=== PATIENT | female | born 1995 | race Caucasian/White ===

== ENCOUNTER 2019-08-07 09:43 | Emergency (ER) | payer OTHER ==
[2019-08-07 10:46] LABS: Basophils % 0.5 % (0-1.3); Hematocrit 40.1 % (36.0-45.0); Lymphocytes % 17.7 % (15.3-44.8); MPV 9.2 fL (7.6-11.3); RBC Red Blood Cell Count 4.88 M/uL (3.86-4.86)
[2019-08-07 10:48] LABS: Urine Blood 3+ (NEG); Urine Glucose NEGATIVE (NEG); Urine Protein TRACE (NEG); Urine Specific Gravity 1.015 (1.005-1.030); Urine pH 5.5 (5.0-7.0)
--- NOTE | 2019-08-07 12:01 | RAD REPORT ---
EXAM DESCRIPTION: US - Transvaginal Study Probe - 08/07/2019 11:27 am CLINICAL HISTORY: Vaginal bleeding Preliminary findings provided at the time of the study. COMPARISON: None. TECHNIQUE: Endovaginal sonography was performed. FINDINGS: Nabothian cysts are present in the cervix. Endometrium is 9 mm in thickness. A focal endom etrial mass or polyp is not identified; however, there is some heterogeneity of the endometrial tissu e. One small 5 mm cystic area is seen in the endometrial tissue. No myometrial mass identifiable. No blood or fluid in the cul de sac. Both ovaries are identifiable. Doppler evaluation shows normal ovarian blood flow. No dominant solid or cystic ovarian or adnexal finding. IMPRESSION: Endometrium is 9 mm in thickness. One small 5 mm cystic area is seen but no solid mass o r polyp seen. Repeat imaging after 2-3 menstrual cycles could be performed to re-evaluate endometrial tissue. No myometrial abnormality. No ovarian or adnexal abnormality.
--- NOTE | 2019-08-07 12:11 | ER ---
Nurse's Notes [facility] Name: Amita Noriega Age: 24 yrs Sex: Female : 1995 Arrival Date: 08/07/2019 Time: 09:48 Bed 20 Private MD: Diagnosis: Abnormal uterine and vaginal bleeding, unspecified Presentation: 08/07 09:57 Presenting complaint: Heavy menstrual bleeding with peanut to golf ball sized clots x 3 hb days. Transition of care: patient was not received from another setting of care. Onset of symptoms was August 05, 2019. Risk Assessment: Do you want to hurt yourself or someone else? Patient reports no desire to harm self or others. Initial Sepsis Screen: Does the patient meet any 2 criteria? No. Patient's initial sepsis screen is negative. Does the patient have a suspected source of infection? No. Patient's initial sepsis screen is negative. Care prior to arrival: None. 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 - Social history:: Smoking status: Patient/guardian denies using tobacco. - Ebola Screening: : No symptoms or risks identified at this time. Screenin:09 Abuse screen: Denies threats or abuse. Denies injuries from another. Nutritional ca1 screening: No deficits noted. Tuberculosis screening: No symptoms or risk factors identified. Fall Risk None identified. Assessment: 10:09 General: Appears in no apparent distress. comfortable, Behavior is calm, cooperative, ca1 appropriate for age. Pain: Denies pain. Neuro: Level of Consciousness is awake, alert, obeys commands, Oriented to person, place, time, situation, Appropriate for age. Cardiovascular: Heart tones S1 S2 present Capillary refill < 3 seconds Patient's skin is warm and dry. Respiratory: Airway is patent Respiratory effort is even, unlabored, Respiratory pattern is regular, symmetrical, Breath sounds are clear bilaterally. GI: Abdomen is round non-distended, Bowel sounds present X 4 quads. Abd is soft and non tender X 4 quads. : Reports vaginal bleeding that is bright red, with clots, heavy flow since Tuesday last week. EENT: No deficits noted. No signs and/or symptoms were reported regarding the EENT system. Derm: Skin is intact, is healthy with good turgor, Skin is pink, warm \T\ dry. Musculoskeletal: Circulation, motion, and sensation intact. Capillary refill < 3 seconds, Range of motion: intact in all extremities. 11:57 Reassessment: Patient appears in no apparent distress at this time. Patient and/or ca1 family updated on plan of care and expected duration. Pain level reassessed. Patient is alert, oriented x 3, equal unlabored respirations, skin warm/dry/pink. 12:49 Reassessment: Patient appears in no apparent distress at this time. Patient is alert, ca1 oriented x 3, equal unlabored respirations, skin warm/dry/pink. Vital Signs: 09:59 BP 147 / 88; Pulse 76; Resp 16; Temp 97.8; Pulse Ox 100% on R/A; Weight 104.33 kg; hb Height 5 ft. 4 in. (162.56 cm); Pain 0/10; 11:57 BP 100 / 52; Pulse 99; Resp 16 S; Pulse Ox 100% on R/A; ca1 12:49 BP 111 / 67; Pulse 79; Resp 16 S; Pulse Ox 100% on R/A; ca1 09:59 Body Mass Index 39.48 (104.33 kg, 162.56 cm) hb ED Course: 09:48 Patient arrived in ED. mr 09:48 Aimee Santiago FNP-C [facility]. kb 09:48 Lake Muñoz MD is Attending Physician. kb 09:59 Triage completed. hb 09:59 Arm band placed on. hb 10:07 Anette Wade, RICH is Primary Nurse. ca1 10:09 Patient has correct armband on for positive identification. Bed in low position. Call ca1 light in reach. Side rails up X 1. Pulse ox on. NIBP on. Warm blanket given. 10:31 Initial lab(s) drawn, by me, sent to lab. Inserted saline lock: 22 gauge in right ca1 antecubital area, using aseptic technique. Blood collected. 11:30 US Transvaginal Study (Probe) In Process Unspecified. EDMS 12:50 No provider procedures requiring assistance completed. IV discontinued, intact, ca1 bleeding controlled, No redness/swelling at site. Pressure dressing applied. Administered Medications: No medications were administered Outcome: 12:10 Discharge ordered by . paige 12:50 Discharged to home ambulatory. ca1 12:50 Condition: stable 12:50 Discharge instructions given to patient, Instructed on discharge instructions, follow up and referral plans. Demonstrated understanding of instructions, follow-up care. 12:50 Patient left the ED. ca1 Signatures: Dispatcher [employer] EDVT Aimee Santiago, ASSET ADMINISTRATOR-C ASSET ADMINISTRATOR-Isamar Villarrela mr Luiza Johnson, RN RN Anette Wade RN RN ca1
--- NOTE | 2019-08-07 12:11 | EDPHYS ---
Physician Documentation [facility] Name: Amita Noriega Age: 24 yrs Sex: Female : 1995 Arrival Date: 08/07/2019 Time: 09:48 Bed 20 Private MD: ED Physician Lake Muñoz HPI: 08/07 10:54 This 24 yrs old Female presents to ER via Ambulatory with complaints of kb Vaginal Bleeding. 10:54 The patient presents with vaginal bleeding that is heavy, with clots. Onset: The kb symptoms/episode began/occurred 7 day(s) ago. Modifying factors: The symptoms are alleviated by nothing, the symptoms are aggravated by nothing. Associated signs and symptoms: Pertinent positives: vaginal bleeding. Severity of symptoms: At their worst the symptoms were moderate, in the emergency department the symptoms are unchanged. The patient has experienced similar episodes in the past, a few times. The patient has not recently seen a physician. Pt reports she started her period on Tuesday, went to [facility] on Tuesday for severe cramps. While she was there she passed a large clot and the cramps subsided. States she has had a heavy flow since then so she came to get checked out. Reports she has always had issues with her cycle and was put on control in the past for her periods. STates she tried to go to a [facility], but was told it would be out of pocket since she hasn't met her deductible so she came here instead. 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 - Social history:: Smoking status: Patient/guardian denies using tobacco. - Ebola Screening: : No symptoms or risks identified at this time. ROS: 10:53 Constitutional: Negative for fever, chills, and weight loss, Neck: Negative for injury, kb pain, and swelling, Cardiovascular: Negative for chest pain, palpitations, and edema, Respiratory: Negative for shortness of breath, cough, wheezing, and pleuritic chest pain, Abdomen/GI: Negative for abdominal pain, nausea, vomiting, diarrhea, and constipation, Back: Negative for injury and pain, MS/Extremity: Negative for injury and deformity, Skin: Negative for injury, rash, and discoloration, Neuro: Negative for headache, weakness, numbness, tingling, and seizure. 10:53 : Positive for vaginal bleeding. Exam: 10:53 Constitutional: This is a well developed, well nourished patient who is awake, alert, kb and in no acute distress. Head/Face: Normocephalic, atraumatic. Neck: Trachea midline, no thyromegaly or masses palpated, and no cervical lymphadenopathy. Supple, full range of motion without nuchal rigidity, or vertebral point tenderness. No Meningismus. Chest/axilla: Normal chest wall appearance and motion. Nontender with no deformity. No lesions are appreciated. Cardiovascular: Regular rate and rhythm with a normal S1 and S2. No gallops, murmurs, or rubs. Normal PMI, no JVD. No pulse deficits. Respiratory: Lungs have equal breath sounds bilaterally, clear to auscultation and percussion. No rales, rhonchi or wheezes noted. No increased work of breathing, no retractions or nasal flaring. Abdomen/GI: Soft, non-tender, with normal bowel sounds. No distension or tympany. No guarding or rebound. No evidence of tenderness throughout. Back: No spinal tenderness. No costovertebral tenderness. Full range of motion. Skin: Warm, dry with normal turgor. Normal color with no rashes, no lesions, and no evidence of cellulitis. MS/ Extremity: Pulses equal, no cyanosis. Neurovascular intact. Full, normal range of motion. Neuro: Awake and alert, GCS 15, oriented to person, place, time, and situation. Cranial nerves II-XII grossly intact. Motor strength 5/5 in all extremities. Sensory grossly intact. Cerebellar exam normal. Normal gait. Vital Signs: 09:59 BP 147 / 88; Pulse 76; Resp 16; Temp 97.8; Pulse Ox 100% on R/A; Weight 104.33 kg; hb Height 5 ft. 4 in. (162.56 cm); Pain 0/10; 11:57 BP 100 / 52; Pulse 99; Resp 16 S; Pulse Ox 100% on R/A; ca1 12:49 BP 111 / 67; Pulse 79; Resp 16 S; Pulse Ox 100% on R/A; ca1 09:59 Body Mass Index 39.48 (104.33 kg, 162.56 cm) hb MDM: 10:03 Patient medically screened. kb 10:54 Data reviewed: vital signs, nurses notes. Data interpreted: Pulse oximetry: on room air kb is 100 %. Interpretation: normal. 12:10 Counseling: I had a detailed discussion with the patient and/or guardian regarding: the kb historical points, exam findings, and any diagnostic results supporting the discharge/admit diagnosis, lab results, radiology results, the need for outpatient follow up, an OB/Gyne specialist, to return to the emergency department if symptoms worsen or persist or if there are any questions or concerns that arise at home. 08/07 10:22 Order name: CBC with Diff; Complete Time: 10:57 kb 08/07 10:22 Order name: Basic Metabolic Panel; Complete Time: 11:00 kb 08/07 09:49 Order name: Urine Dipstick-Ancillary (obtain specimen); Complete Time: 10:18 kb 08/07 10:22 Order name: US Transvaginal Study (Probe); Complete Time: 12:16 kb 08/07 10:22 Order name: Urine Dipstick--Ancillary (enter results); Complete Time: 10:50 em1 08/07 10:22 Order name: Urine --Ancillary (enter results); Complete Time: 10:50 em1 08/07 09:49 Order name: Urine Test (obtain specimen); Complete Time: 10:18 kb 08/07 10:22 Order name: IV Start; Complete Time: 10:34 kb Administered Medications: No medications were administered Disposition: 08/08 07:19 Co-signature as Attending Physician, Lake Muñoz MD I agree with the assessment and kdr plan of care. Disposition: 08/07/19 12:10 Discharged to Home. Impression: Abnormal uterine and vaginal bleeding, unspecified. - Condition is Stable. - Discharge Instructions: Abnormal Uterine Bleeding, [id number]. - Medication Reconciliation Form, Thank You Letter, Antibiotic Education, Prescription Opioid Use form. - Follow up: Emergency Department; When: As needed; Reason: Worsening of condition. Follow up: Private Physician; When: 2 - 3 days; Reason: Recheck today's complaints, Continuance of care, Re-evaluation by your physician. Signatures: Dispatcher [employer] EDMS Aimee Santiago, CLASSICS PROFESSOR-C CLASSICS PROFESSOR-Ckb Lake Muñoz MD MD [facility] Luiza Johnson, RICH RN AcAnette alan RN RN ca1 Corrections: (The following items were deleted from the chart) 08/07 12:50 12:10 08/07/2019 12:10 Discharged to Home. Impression: Abnormal uterine and vaginal ca1 bleeding, unspecified. Condition is Stable. Forms are Medication Reconciliation Form, Thank You Letter, Antibiotic Education, Prescription Opioid Use. Follow up: Emergency Department; When: As needed; Reason: Worsening of condition. Follow up: Private Physician; When: 2 - 3 days; Reason: Recheck today's complaints, Continuance of care, Re-evaluation by your physician. kb
[2019-08-07 13:00] VITALS: TEMP 97.8; O2SAT 100
[2019-08-07 13:03] VITALS: BP 111/67
--- OUTSIDE RECORDS SUMMARY | 2019-08-12 23:11 | XMS REPORT ---
:1995 [facility] Address [address] [place] [address] Dr. Hanson[address] [place] [id number] Care Team Providers Name Role Phone Unavailable Unavailable Unavailable Problems This patient has no known problems. Allergies, Adverse Reactions, Alerts This patient has no known allergies or adverse reactions. Medications This patient has no known medications.
== END 2019-08-07 12:50 | disposition home or self-care (01) ==
LOC: ER 09:43
DX: N93.9 Abnormal uterine and vaginal bleeding, unspecified (principal)
CPT/HCPCS: 36415; 76830; 80048; 81003; 81025; 85025; 99284